=== PATIENT | male | born 1965 | race Caucasian/White ===

== ENCOUNTER 2017-07-04 22:02 | Observation (INO) | payer OTHER ==
[~2017-07-04] VITALS: Ht 170.2 cm; Wt 70.9 kg
[2017-07-04 23:09] LABS: HEMATOCRIT 39.8 % (38.0-50.0); MCH 31.2 PG (29.0-34.0); MCHC 35.2 G/DL (30.0-36.0); MCV 88.6 FL (86-99); PLATELET COUNT 353 K/uL (156-360); RBC DIS.WIDTH-CV 11.7 % (11.8-14.6); RBC DIS.WIDTH-SD 37.7 % (39-53); RED BLOOD COUNT 4.49 M/uL (4.00-5.50); WHITE BLOOD COUNT 15.2 K/uL (4.1-10.2)
[2017-07-04 23:17] LABS: ALBUMIN 4.1 g/dL (3.2-4.8); CHLORIDE 103 mEq/L (99-109); POTASSIUM 3.8 mEq/L (3.7-5.4); SODIUM 138 mEq/L (136-147)
[2017-07-04 23:19] LABS: GLUCOSE 112 mg/dL (70-99)
[2017-07-04 23:20] LABS: TOTAL PROTEIN 6.9 g/dL (6.4-8.3)
[2017-07-04 23:21] LABS: TOTAL BILIRUBIN 0.2 mg/dL (0.0-1.0)
[2017-07-04 23:23] LABS: ALKALINE PHOSPHATASE 64 IU/L (3-129); CREATININE 0.9 mg/dL (0.6-1.3)
[2017-07-04 23:24] LABS: GFR ESTIMATE (CALCULATED) > 59 mL/min/ (58.99-99999); UREA NITROGEN (BUN) 18 mg/dL (9-23)
[2017-07-04 23:25] LABS: AST (GOT) 18 IU/L (2-34)
[2017-07-04 23:26] LABS: ALT (GPT) 19 IU/L (3-49)
[2017-07-05 00:02] LABS: TROP-I INTERPRETATION NEGATIVE; TROPONIN-I < 0.01 ng/mL (0.0-0.30)
[2017-07-05 00:36] LABS: APPEARANCE CLEAR ((CLEAR)); BILIRUBIN NEGATIVE; BLOOD NEGATIVE; COLOR YELLOW ((YELLOW)); GLUCOSE (STRIP) NEGATIVE; KETONES NEGATIVE; LEUKOCYTES NEGATIVE; NITRITE NEGATIVE; PROTEIN (STRIP) 30; SPECIFIC GRAVITY 1.033 (1.000-1.030); UCUL ADDED? NO; UROBILINOGEN 0.2 MG/DL (0.2-1.0)
[2017-07-05] MEDS ORDERED: IBUPROFEN800 MG PO (01:14)
[2017-07-05] MEDS ORDERED: ADULT ASPIRIN R81 MG PO (01:14)
[2017-07-05] MEDS ORDERED: EXCEDRIN EXTRA1 EACH PO (01:14)
[2017-07-05 03:34] VITALS: BP 126/67
[2017-07-05 04:26] LABS: HEMATOCRIT 39.5 % (38.0-50.0); HEMOGLOBIN 13.9 G/DL (12.5-16.6); MCH 30.8 PG (29.0-34.0); MCHC 35.2 G/DL (30.0-36.0); MCV 87.4 FL (86-99); PLATELET COUNT 323 K/uL (156-360); RBC DIS.WIDTH-CV 11.7 % (11.8-14.6); RBC DIS.WIDTH-SD 37.7 % (39-53); RED BLOOD COUNT 4.52 M/uL (4.00-5.50); WHITE BLOOD COUNT 12.7 K/uL (4.1-10.2)
[2017-07-05 04:50] LABS: TROP-I INTERPRETATION NEGATIVE; TROPONIN-I < 0.01 ng/mL (0.0-0.30)
[2017-07-05 06:17] VITALS: BP 112/66
[2017-07-05 10:51] LABS: TROP-I INTERPRETATION NEGATIVE; TROPONIN-I < 0.01 ng/mL (0.0-0.30)
[2017-07-05 12:00] VITALS: BP 153/84
[2017-07-05] MEDS ORDERED: COREG6.25 M1 PO (13:01)
[2017-07-05] MEDS ORDERED: ATORVASTATIN CA40 MG PO (13:02)
[2017-07-05] MEDS ORDERED: AUGMENTIN875 MG PO (13:19)
== END 2017-07-05 14:24 | disposition home or self-care (01) ==
LOC: EME 22:02 → EDOF 07-05 01:38 → 5WEST 07-05 01:38 → EDOF 07-05 01:38 → ENRESERV 07-05 01:39 → 5WEST 07-05 02:39
PROVIDERS: Hospitalist; Physician Assistant
DX: R07.9 Chest pain, unspecified (principal); R11.2 Nausea with vomiting, unspecified; R61 Generalized hyperhidrosis; I25.10 Atherosclerotic heart disease of native coronary artery without angina pectoris; Z95.5 Presence of coronary angioplasty implant and graft; I25.2 Old myocardial infarction; K04.7 Periapical abscess without sinus; F17.210 Nicotine dependence, cigarettes, uncomplicated; I10 Essential (primary) hypertension; E78.5 Hyperlipidemia, unspecified; D72.829 Elevated white blood cell count, unspecified; Z79.82 Long term (current) use of aspirin; Z66 Do not resuscitate
CPT/HCPCS: 71046; 80053; 81003; 84484; 85027; 93005; G0378; J1644